=== PATIENT | male | born 1940 | race Caucasian/White ===

== ENCOUNTER 2019-05-27 13:49 | Outpatient (CLI) | payer MEDICARE, BC ==
--- NOTE | 2019-05-27 15:12 | MRI ---
Cervical spine MRI without contrast: 05/27/2019 COMPARISON: None HISTORY: Cervical spondylosis, myelopathy, right upper extremity radiculopathy TECHNIQUE: Multiplanar multisequence MR imaging of the cervical spine without contrast. FINDINGS: There are lobulated nonspecific areas of increased T2 signal seen within the cerebellar hem isphere medially on the left and superomedially on the right, not well evaluated on this examination, grossly unchanged when compared to 07/30/2015 brain MRI. This could be better assessed wi dedicated brain MRI with and without contrast as clinically warranted. The sagittal STIR imaging demonstrates no focal area of osseous marrow edema. There is moderate degenerative change at the atlantoaxial interspace. C2-3: Facet and uncovertebral osteophyte formation noted on the left. Mild disc desiccation and disc space narrowing with no significant central canal or neural foraminal stenosis. C3-4: There is disc space narrowing and disc desiccation with mild disc bulge. Bilateral facet and un covertebral osteophyte formation with mild left and moderate right neural foraminal stenosis. Mild central canal stenosis. C4-5: There is disc space narrowing and disc desiccation with mild disc bulge partially effacing the ventral thecal sac and causing a mild degree of central canal stenosis. Bilateral facet and uncovertebral osteophyte formation, left greater than right, with moderate right and severe left neur al foraminal stenosis. C5-6: Edematous degenerative endplate changes are present with disc space narrowing and disc desiccat ion as well as mild disc bulge partially effacing the ventral thecal sac and leading to mild central canal stenosis. Bilateral facet and uncovertebral osteophyte formation, right greater than le ft. Moderate right neural foraminal stenosis. No significant left neural foraminal stenosis. C6-7: Mild bilateral facet hypertrophy with no significant central canal or neural foraminal stenosis C7-T1: Bilateral facet hypertrophy noted with mild/moderate bilateral neural foraminal stenosis, righ t greater than left. No significant central canal stenosis. No focal area of abnormal signal intensity identified within the cervical cord. Incidental note made of a 6 x 10 mm T2 hyperintense nodule within the posterior aspect of the left lobe of the thyroid gland. IMPRESSION: Multifocal degenerative change noted within the cervical spine as described above.
--- NOTE | 2019-05-27 16:57 | MRI ---
MRI BRAIN WITH AND WITHOUT CONTRAST: Comparison: 07-30-15 Indication: FINDINGS: There is grossly stable vascular enhancement within the cerebellum, bilaterally in a distribution carlin t is most consistent with a vascular malformation, given anidous of enhancement surrounded by a tangl e of small linear, vascular related enhancement. Small, presumed draining veins do approximate the ad jacent tentorium. Associated signal abnormality of the bilateral cerebellum as well as mild effacemen t of the fourth ventricle are similar. No interval acute intracranial abnormalities. Mild susceptibility artifact related to the above descr ibed signal alteration of the cerebellum is stable to slightly decreased. 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 Recommend continued imaging surveillance to confirm ongoing size stability. POS: [facility]
== END 2019-05-27 13:50 | disposition home or self-care (01) ==
LOC: TBSIIMAG 13:49
PROVIDERS: ATTEND Neurological Surgery
DX: M47.12 Other spondylosis with myelopathy, cervical region (principal); Q28.2 Arteriovenous malformation of cerebral vessels
CPT/HCPCS: 70553; 72141; 82565